=== PATIENT | female | born 1960 | race Caucasian/White ===

== ENCOUNTER → 2016-10-17 | Outpatient (CLI) | payer OTHER ==
[~2016-10-17] MED LIST: LORATADINE PO; TYLOX 5/500 CAP1 CAP PO
--- NOTE | ~2016-10-17 | US77 ---
[facility] A Service of [facility] & [facility] RADIOLOGY TEXT RESULTS PATIENT: BRIAN HOUGH LOCATION: [facility] : 60 UNIT #: [id number] AGE: [address]: Isis Lee MD SEX: F ORDER DR: [id number] [facility] [address] [facility] [place], [place] [address] [id number] O MR#: [id number] Acc #: [id number] NAME: BRIAN HOUGH. : 1960 SEX: F STUDY DATE/TIME: 10/17/2016 9:26 UNIT: [facility] ROOM: STUDY DESCRIPTION: US Kidney Bilateral Complete Attending Physician: Taylor Lee M.D. Referring Physician: Taylor Lee M.D. Ordering Physician: Taylor Lee M.D. Primary Care Physician: Primary Care Physician No MEDICAL IMAGING REPORT This report is preliminary unless electronic signature is present EXAM Renal ultrasound bilateral, 10/17/2016 INDICATIONS 56-year-old female with acute renal failure, hypertension for several years, controlled with medications. Creatinine 50 mg/dL. TECHNIQUE Sonographic imaging of the kidneys was performed bilaterally. We have no comparisons. FINDINGS These were apparently the best images possible given the patient's functional status. Portions of both kidneys were obscured from view and not visualized or assessed. Imaging of the bladder is negative. The right kidney measures 9.8 x 4.0 x 4.3 cm and the left kidney measures 10.3 x 3.3 x 4.5 cm. There is no shadowing stone or hydronephrosis on either side. The technologist has placed calipers upon an area of decreased echogenicity in the lateral upper-pole left kidney measuring up to 17 x 18 x 13 mm. This does not represent a simple cyst. Imaging features are indeterminate but this is favored to represent a complicated upper-pole cyst on the left with internal debris. This could be best further assessed with a multiphase protocol with and without contrast MRI, or CT if the patient cannot tolerate MRI. If cross-sectional imaging is deferred, then a followup ultrasound in 6 months would be recommended for reassessment. IMPRESSION 1. The kidneys demonstrate no hydronephrosis or shadowing stone on either side. 2. There is a hypoechoic indeterminate lesion in the lateral upper-pole left kidney measuring up to 18 x 17 mm. This may represent a complicated cyst. Suggest further evaluation with a renal protocol [facility]. [facility] A Service of [facility] & [facility] RADIOLOGY TEXT RESULTS PATIENT: BRIAN HOUGH LOCATION: [facility] ACC #: [id number] : 60 UNIT #: [id number] AGE: [address]: Isis Lee MD SEX: F ORDER DR: MRI, or CT as described above. If that is deferred, then 6-month followup ultrasound would be recommended for reassessment of stability. 3. Bladder unremarkable. Dictated by... Jluis Pickett M.D. THIS IS AN ELECTRONICALLY VERIFIED REPORT Jluis Pickett M.D. at 10/19/2016 7:34 AM JACQUELINE/ho TD: 10/18/2016 22:53 JOB #: [id number] MEDICAL IMAGING REPORT Page 1 of 1 COPY
--- NOTE | ~2016-10-17 | US78 ---
[facility] A Service of [facility] & [facility] RADIOLOGY TEXT RESULTS PATIENT: BRIAN HOUGH LOCATION: [facility] : 60 UNIT #: [id number] AGE: [address]: Isis Lee MD SEX: F ORDER DR: [id number] [facility] [address] [place], [place] [address] [id number] O MR#: [id number] Acc #: [id number] NAME: BRIAN HOUGH. : 1960 SEX: F STUDY DATE/TIME: 10/17/2016 9:36 UNIT: [facility] ROOM: STUDY DESCRIPTION: US Kidney Duplex Complete Attending Physician: Taylor Lee M.D. Referring Physician: Taylor Lee M.D. Ordering Physician: Taylor Lee M.D. Primary Care Physician: No Primary Care Physician MEDICAL IMAGING REPORT This report is preliminary unless electronic signature is present EXAM Bilateral renal duplex Doppler ultrasound. COMPARISON Renal ultrasound dated October 17, 2016. INDICATION 56-year-old female with hypertension and acute renal failure. FINDINGS Exam is not optimized for evaluation of the renal parenchyma. Please see separately dictated report of renal ultrasound on the same date. Color flow and spectral Doppler of the renal arteries and abdominal aorta was performed. Left kidney is normal in size, measuring 10.6 cm in length with normal cortical thickness. There is no left hydronephrosis. Left renal artery resistant indices are normal. Peak systolic velocities in the proximal, mid and distal left renal arteries are 119 cm/second, 129 cm/sec and 90 cm/second respectively. The peak systolic velocity in the mid abdominal aorta is 109 cm/sec. This gives a left renal artery to aorta ratio of 1.1, which is within normal limits. Visualized abdominal aorta is normal in caliber, measuring up to 1.7 cm distally, 1.6 at the mid aspect and 2 cm superiorly. Normal arterial wave forms are seen within the left kidney as well as the abdominal aorta. The IVC is patent with normal venous waveform. There is a hypoechoic structure in the left kidney measuring approximately 2.3 x 2.8 x 2.4 cm. There may be contamination on color-flow imaging, possibly due to motion, but there is some question of internal flow on the color images. This lesion is indeterminate. The celiac artery and its proximal branches are incidentally visualized and appear patent on color flow image. Peak systolic velocities in the proximal, mid and distal right renal arteries are 176 cm/sec, 132 cm/sec [facility] A Service of [facility] RADIOLOGY TEXT RESULTS PATIENT: BRIAN HOUGH [id number] 60 UNIT #: [id number] AGE: [address]: Isis Lee MD SEX: F ORDER DR: and 49 cm/sec. There are normal resistive indices in the right renal arcuate arteries. Normal arterial wave forms are present within the right kidney. The right renal artery to aorta ratio is normal at 1.6. Bilateral renal veins are patent. There is no evidence of right hydronephrosis. Partly anechoic lesion is seen to extend exophytically from the liver, measuring 6.9 cm x 6.9 cm x 6.3 cm, with some dependent hypoechogenicity, possibly reflecting reverberation, but there is some suggestion of possible internal color flow. IMPRESSION 1. No evidence of renal artery stenosis. Normal bilateral renal arcuate artery resistive indices. 2. Indeterminate exophytic lesion extending from the liver, measuring up to 6.9 cm x 6.9 cm x 6.3 cm, possibly with internal color flow. Consider further evaluation with CT abdomen with and without IV contrast for further characterization when the patient's renal function is back to normal. Alternatively, MRI of the abdomen with and without IV Dotarem could be performed as this is a contrast agent noted to be safe in renal failure. 3. Indeterminate lesion in the left kidney measuring up to 2.8 cm. Both the left renal lesion and the liver lesion may have internal color flow and, therefore, evaluation of this left renal lesion with CT abdomen or MRI abdomen with and without IV contrast is also recommended. Dictated by... Nasir Victor M.D. THIS IS AN ELECTRONICALLY VERIFIED REPORT Nasir Victor M.D. at 10/19/2016 10:25 AM BLM/gz TD: 10/19/2016 09:36 JOB #: [id number] MEDICAL IMAGING REPORT Page 1 of 1 COPY
== END | disposition home or self-care (01) ==
LOC: CGUS 08:40
DX: N17.9 Acute kidney failure, unspecified (principal); N28.89 Other specified disorders of kidney and ureter; K76.89 Other specified diseases of liver; I10 Essential (primary) hypertension
CPT/HCPCS: 76770; 93975

== ENCOUNTER → 2016-10-26 | Outpatient (CLI) | payer OTHER ==
[2016-10-26 10:14] LABS: HEMATOCRIT 40.9 % (35.0-45.0); MEAN CELL VOLUME 91.9 FL (83-96); MEAN CORPUSCULAR HEMOGLOBIN 29.2 PG (28-34); MEAN CORPUSCULAR HGB CONC 31.8 g/dL (30-36); MEAN PLATELET VOLUME 9.4 FL (6.5-11.5); RED BLOOD COUNT 4.45 X10e (3.90-5.30); RED CELL DISTRIBUTION WIDTH 13.5 % (11.0-15.5); WHITE BLOOD COUNT 7.2 X10e3 (4.0-10.5)
[2016-10-26 10:18] LABS: URINE APPEARANCE CLOUDY; URINE BILIRUBIN NEG (NEG); URINE BLOOD NEG (NEG); URINE COLOR YELLOW; URINE GLUCOSE NEG (NEG); URINE KETONE NEG (NEG); URINE LEUKOCYTE ESTERASE 2+ (NEG); URINE NITRATE NEG (NEG); URINE PH 7.5 (5-8); URINE PROTEIN NEG (NEG); URINE SPECIFIC GRAVITY 1.019 (1.003-1.035); URINE UROBILINOGEN 0.2 MG/DL (NEG)
[2016-10-26 10:20] LABS: URBCS1 AUWI 0-2 /[HPF] (0-2); URINE SQUAMOUS EPITHELIAL CELL MOD /[HPF]
[2016-10-26 10:30] LABS: URINE SOURCE CLEAN CATCH
[2016-10-26 10:33] LABS: URINE BACTERIA AUWI 3+ (NEGATIVE)
[2016-10-26 10:45] LABS: CREATININE,RANDOM URINE 130 mg/dL; TOTAL PROTEIN,RANDOM URINE 18 mg/dl (<10)
[2016-10-26 11:03] LABS: ALBUMIN SERUM 4.2 g/dL (3.5-5.0); BILIRUBIN,TOTAL 0.6 mg/dL (0.2-2.0); CALCIUM SERUM 9.6 mg/dL (8.4-10.2); POTASSIUM 3.8 mmol/L (3.5-5.1); PROTEIN TOTAL SERUM 6.9 g/dL (6.0-8.3); URIC ACID 4.4 mg/dL (2.6-7.2)
[2016-10-28 05:37] LABS: COMPLEMENT C3 129 mg/dL (90-180); COMPLEMENT C4 30 mg/dL (16-47)
[2016-10-29 14:52] LABS: ANA SCREEN Negative (Negative); MYELOPEROXIDASE AB (PNL) <1.0 AI (<1.0); PROTEINASE-3 AB (PNL) <1.0 AI (<1.0)
== END | disposition home or self-care (01) ==
LOC: CLAB 09:25
PROVIDERS: Internal Medicine Nephrology
DX: N17.9 Acute kidney failure, unspecified (principal)
CPT/HCPCS: 36415; 80053; 81003; 82550; 82570; 84156; 84550; 85027; 86021; 86038; 86039; 86160; 86334

== ENCOUNTER → 2016-11-07 | Outpatient (CLI) | payer OTHER ==
--- NOTE | ~2016-11-07 | CT3 ---
[facility] A Service of [facility] & [facility] RADIOLOGY TEXT RESULTS PATIENT: BRIAN HOUGH [facility] : 60 UNIT #: [id number] AGE: [address]: Isis Lee MD SEX: F ORDER DR: [id number] [facility] [address] [place], [place] [address] [id number] O MR#: [id number] Acc #: [id number] NAME: BRIAN HOUGH. : 1960 SEX: F STUDY DATE/TIME: 11/07/2016 14:16 UNIT: [facility] ROOM: STUDY DESCRIPTION: CT Abd and Pelv WWo Cont Attending Physician: Taylor Lee M.D. Referring Physician: Taylor Lee M.D. Ordering Physician: Taylor Lee M.D. Primary Care Physician: Juan José Boggs Jr., A.P.R.N. MEDICAL IMAGING REPORT This report is preliminary unless electronic signature is present EXAM CT abdomen without contrast, CT abdomen and pelvis with contrast INDICATION Flank and back pain for the past 6 months. Indeterminate lesion in the left kidney on recent ultrasound. Observation for renal cyst versus mass. PROCEDURE Unenhanced CT of the abdomen. Postcontrast CT of the abdomen and pelvis with multiphase acquisition through the kidneys. COMPARISON Renal ultrasound from 10/17/2016. TECHNIQUE This CT examination was performed with one or more of the following radiation dose reduction techniques: automatic exposure control, adjustment of mA and/or kV according to patient size, and iterative reconstruction. FINDINGS ABDOMEN WITHOUT CONTRAST: There is a tiny stone in the gallbladder. No radiodense renal calculus. ABDOMEN WITH CONTRAST: Kidneys enhance symmetrically. 3 cm cyst in the medial left kidney. 1.3 cm cyst in the [id number] left kidney. There are a few other smaller cysts in both kidneys. No enhancing renal mass. There are scattered hepatic cysts, including a dominant cyst segment 4 of the liver that measures up to 8.4 cm. There is enhancing lesion along the posterior segment 2 that measures 2.7 cm. Has a small central scar and is ISO attenuating to the background liver on the other phases. Spleen, adrenal glands, pancreas and gallbladder unremarkable. Moderate STS. [facility] A Service of [facility] & [facility] RADIOLOGY TEXT RESULTS PATIENT: BRIAN HOUGH LOCATION: [facility] : 60 UNIT #: [id number] AGE: [address]: Isis Lee MD SEX: F ORDER DR: colonic stool. Appendix is normal. PELVIS WITH CONTRAST: 2.9 cm right adnexal cyst. No pelvic mass or fluid. No aggressive appearing bone lesion. IMPRESSION 1. No enhancing renal mass. Bilateral renal cysts. 2. Hepatic cysts. 3. 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 If patient has any available prior imaging, comparison with those studies would be helpful. 4. 2.9 cm right adnexal cyst. Probably representing a benign functional cyst but can be followed with pelvic ultrasound to document resolution or stability. Dictated by... Chetan Gross M.D. THIS IS AN ELECTRONICALLY VERIFIED REPORT Chetan Gross M.D. at 11/09/2016 7:19 AM PALOMO/melissa TD: 11/08/2016 10:00 JOB #: [id number] MEDICAL IMAGING REPORT Page 1 of 1 COPY
[2016-11-07 13:50] LABS: POC - CREATININE 0.98 mg/dL (0.44-1.03); POC - GFR >60.0 mL/min (>60)
== END | disposition home or self-care (01) ==
LOC: CCAT 13:03
PROVIDERS: Internal Medicine Nephrology
DX: N28.1 Cyst of kidney, acquired (principal); K76.89 Other specified diseases of liver; K76.9 Liver disease, unspecified; N85.8 Other specified noninflammatory disorders of uterus
CPT/HCPCS: 74178; 82565; Q9967